=== PATIENT | female | born 1945 | race Caucasian/White ===

== ENCOUNTER 2021-09-20 10:22 | Observation (INO) ==
[2021-09-20] MEDS ORDERED: Aspirin 81 MG TAB.CHEW PO ONE (10:26)
[2021-09-20 10:57] LABS: Basophils # 0.1 K/mcL (0.0-0.2); Basophils % 0.8 %; Eosinophils # 0.2 K/mcL (0.0-0.6); Eosinophils % 2.2 %; Hematocrit 44.2 % (35.3-44.9); Hemoglobin 14.4 g/dL (11.5-15.4); Immature Granulocytes % 0.8 % (0-4); Lymphocytes # 2.5 K/mcL (0.6-4.6); Lymphocytes % 25.9 %; Mean Corpuscular HGB Conc 32.6 g/dL (31.6-35.5); Mean Corpuscular Hemoglobin 32.7 pg (28.0-33.3); Mean Corpuscular Volume 100.2 fL (83.0-100.0); Mean Platelet Volume 10.9 fL (9.4-12.4); Monocytes # 1.1 K/mcL (0.0-1.3); Monocytes % 11.8 %; Neutrophils # 5.6 K/mcL (1.6-8.9); Platelet Count 223 K/mcL (140-400); Red Blood Count 4.41 M/mcL (3.82-4.97); Red Cell Distribution Width 12.5 % (11.5-14.5); Segmented Neutrophils % 58.5 %; White Blood Count 9.6 K/mcL (4.3-11.1)
[2021-09-20 11:04] LABS: INR 1.1; Prothrombin Time 12.4 Seconds (9.4-12.1)
[2021-09-20 11:06] LABS: BUN/Creatinine Ratio 21 (6-26); Blood Urea Nitrogen 24 mg/dL (8-23); Calcium 8.6 mg/dL (8.6-10.3); Carbon Dioxide 29 mEq/L (23-29); Chloride 102 mEq/L (98-107); Glucose 93 mg/dL (70-105); Osmolality,Calculated 290 (280-300); Sodium 138 mEq/L (136-145); Troponin I < 0.03 ng/mL (< 0.04); eGFR For African Americans 56 (> 60); eGFR For Non-African Americans 47 (> 60)
[2021-09-20 11:07] LABS: Activated Partial Thrombo Time 33.6 Seconds (26.0-36.0)
[2021-09-20] MEDS ORDERED: Ondansetron ODT 4 MG TAB.RAPDIS SL PRN (12:16)
[2021-09-20] MEDS ORDERED: Mag Hydrox/Al Hydrox/Simeth 30 ML UDC PO PRN (12:16)
[2021-09-20] MEDS ORDERED: Naloxone 0.4 MG/ML INJ IVP PRN (12:16)
[2021-09-20] MEDS ORDERED: MOM Conc 10 ML UD.LIQ PO PRN (12:16)
[2021-09-20] MEDS ORDERED: Melatonin 3 MG TABLET PO PRN (12:16)
[2021-09-20] MEDS ORDERED: GI Cocktail 40 ML EACH PO ONE (13:38)
[2021-09-20] MEDS ORDERED: Heparin 1,000 UNITS/500 mL 500 ML ONE (14:09)
[2021-09-20] MEDS ORDERED: *HR* Heparin 10,000 UNIT/10 ML VIAL ONE (14:09)
[2021-09-20] MEDS ORDERED: 0.9 % Sodium Chloride 2,000 ML ONE (14:09)
[2021-09-20] MEDS ORDERED: ISOVUE-370 200 ML INFUS..BTL ONE (14:10)
[2021-09-20] MEDS ORDERED: Nitroglycerin 1,000 MCG/5 ML VIAL IV ONE (14:10)
[2021-09-20] MEDS ORDERED: *HR* Midazolam HCl 2 MG/2 ML VIAL ONE (15:02)
[2021-09-20] MEDS ORDERED: *HR* FentaNYL (PF) 100 MCG/2 ML VIAL ONE (15:02)
[2021-09-20] MEDS: lisinopriL 20 MG TABLET PO SCH (16:01)
[2021-09-20] MEDS: Metoprolol XL (24 HR) Succ 25 MG TAB.ER.24H PO SCH (16:01)
[2021-09-20] MEDS: Pantoprazole 40 MG VIAL IVP SCH (17:17)
[2021-09-20] MEDS ORDERED: Acetaminophen 325 MG TABLET PO PRN (20:21)
[2021-09-21] MEDS: Pantoprazole 40 MG VIAL IVP SCH (05:13)
[2021-09-21] MEDS ORDERED: *HR* Enoxaparin 40 MG/0.4 ML SYRINGE SQ SCH (06:00)
[2021-09-21] MEDS: lisinopriL 20 MG TABLET PO SCH (08:56)
[2021-09-21] MEDS: Metoprolol XL (24 HR) Succ 25 MG TAB.ER.24H PO SCH (08:56)
[2021-09-21] MEDS ORDERED: Aspirin 81 MG TAB.CHEW PO SCH (09:00)
[2021-09-21 09:14] LABS: Lipase 10 Units/L (11-82)
[2021-09-21] MEDS ORDERED: Lidocaine -MPF 2% 5 ML VIAL ONE ×2 (09:37→09:38)
[2021-09-21] MEDS ORDERED: *HR* Propofol 200 MG/20 ML VIAL IVP ONE (09:38)
[2021-09-21 15:26] VITALS: BP 116/64; PULSE 67; TEMP 98.4; O2SAT 95
== END 2021-09-21 15:37 | disposition home or self-care (01) ==
LOC: EMEROOARM 10:22 → 3BNU 10:22 → SUATTDRO 11:52 → 3BNU 12:49
PROVIDERS: ADMIT Internal Medicine; ATTEND Registered Nurse
PROC: ENDOEBX (2021-09-21 10:00)